=== PATIENT | male | born 1980 ===

== ENCOUNTER 2023-02-19 13:55 | Emergency (ER) | payer OTHER ==
[~2023-02-19] VITALS: Ht 188 cm; Wt 99.8 kg
[2023-02-19 14:05] VITALS: BP 111/80
[2023-02-19] MEDS ORDERED: TIZA4 PO (14:07)
[2023-02-19] MEDS ORDERED: GABA300 PO (14:07)
[2023-02-19] MEDS ORDERED: PROPRANOLOL HCL60 MG PO (14:08)
[2023-02-19] MEDS ORDERED: HYDPAM50 PO (14:08)
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
[2023-02-19] MEDS ORDERED: IBUP800 PO (15:40)
== END 2023-02-19 15:50 | disposition home or self-care (01) ==
LOC: ER 13:55
DX: S00.81XA Abrasion of other part of head, initial encounter (principal); S80.812A Abrasion, left lower leg, initial encounter; S80.811A Abrasion, right lower leg, initial encounter; M54.50 Low back pain, unspecified; V49.50XA Passenger injured in collision with unspecified motor vehicles in traffic accident, initial encounter
CPT/HCPCS: 72100; 99284-25; G0480